=== PATIENT | female | born 1955 | race Caucasian/White ===

== ENCOUNTER 2016-12-31 12:35 | Outpatient (CLI) | payer OTHER ==
[~2016-12-31 12:35] MED LIST: BLOOD PRESSURE MED PO; DIOVAN PO; VERAPAMIL PO
== END 2016-12-31 18:58 | disposition home or self-care (01) ==
LOC: SRD 12:35
PROVIDERS: ATTEND Internal Medicine
DX: J45.909 Unspecified asthma, uncomplicated (principal); M47.899 Other spondylosis, site unspecified
CPT/HCPCS: 71020-TC